=== PATIENT | female | born 1975 | race Caucasian/White ===

== ENCOUNTER 2020-10-12 07:25 | Emergency (ER) | payer MEDICAID ==
[2020-10-12] MEDS ORDERED: DOXYCYCLINE 100 MG TABLET PO STA (08:25)
[2020-10-12] MEDS ORDERED: cephALEXin 250 MG CAPSULE PO STA (08:25)
--- NOTE | 2020-10-12 08:59 | XRAY Report ---
PROCEDURE: Finger(s) LT INDICATIONS: injury/pain/swelling index finger TECHNIQUE: AP hand, 2 views of the second finger(s) acquired. COMPARISON: None FINDINGS: Bones: No fractures or dislocations is seen in second finger. There is cortical irregularity involvi ng radial aspect of third distal phalangeal base suggestive of age-indeterminate injury. Radiolucency is also seen involving ulnar aspect of fourth middle phalangeal base. Soft tissues: No suspicious soft tissue calcifications. Soft tissue swelling surrounding fourth PIP joint is seen. IMPRESSION: 1. No gross second finger fracture or dislocation. No suspicious bony lesion within second finger. 2. Incidentally noted of age-indeterminate injury involving radial aspect of third distal phalangeal base. Radiolucency involving ulnar aspect of fourth middle phalangeal base with surrounding fourth P IP soft tissue swelling. Clinical correlation is recommended for evaluation of possible inflammatory arthropathy. Reviewed by: Reyes Gamboa MD on 10/12/2020 8:58 AM PDT Approved by: Reyes Gamboa MD on 10/12/2020 8:58 AM PDT Station ID: [id number]
--- NOTE | 2020-10-12 09:09 | ED Physician Documentation ---
PD HPI UPPER EXT INJURY - Stated complaint Stated Complaint: L HAND PX - Chief complaint Chief Complaint: Ext Problem - History obtained from History obtained from: Patient - Additonal information Additional information: Patient comes emergency department chief complaint of I think I sprained my left index finger. Patient states that yesterday, when she was tying her shoe, she pulled extra hard on a shoelace and felt as though she had sprained her left index finger. She states it continued to become increasingly painful throughout the day, and began to swell. Patient states that when she woke up this morning, her finger was quite swollen and appeared somewhat red. Patient states the pain and swelling have not spread beyond the finger, however. She states that she has a history of something similar happening on the other hand, though it involve the entire hand. She states it turned red and swollen and was quite painful. She never sought medical attention and ultimately, she states the symptoms resolved on their own. Patient also notes that the fourth finger of the left hand has repeatedly swelled and has become deformed at the PIP joint. She is not sure why. The patient has no history of rheumatoid or lupus arthritis. She is not known to have gout. Nobody in the family with these problems. Patient denies fevers or chills. She states she does not feel ill in any way. She has a history of pulmonary hypertension and is a smoker. No other complaints at this time. Review of Systems Ten Systems: 10 systems reviewed and negative Constitutional: reports: Reviewed and negative Eyes: reports: Reviewed and negative Ears: reports: Reviewed and negative Nose: reports: Reviewed and negative Throat: reports: Reviewed and negative Cardiac: reports: Reviewed and negative Respiratory: reports: Reviewed and negative GI: reports: Reviewed and negative : reports: Reviewed and negative Skin: reports: Reviewed and negative Musculoskeletal: reports: Extremity pain, Joint pain, Extremity swelling, Joint swelling Neurologic: reports: Reviewed and negative Psychiatric: reports: Reviewed and negative Endocrine: reports: Reviewed and negative Immunocompromised: reports: Reviewed and negative PD PAST MEDICAL HISTORY - Past Medical History Past Medical History: Yes Cardiovascular: Congestive heart failure, Hypertension, Other Respiratory: Emphysema, Other Neuro: None Endocrine/Autoimmune: None GI: Hepatitis PLACEMENT MANAGER: None : None HEENT: None Psych: None Musculoskeletal: None Derm: None Other Past Medical History: pulmonary arterial hypertension - Past Surgical History Past Surgical History: Yes /PLACEMENT MANAGER: section - Present Medications Home Medications: Ambulatory Orders Medication Instructions Recorded Confirmed Albuterol Sulf [Ventolin Hfa 1 - 2 puffs INH Q4HR PRN 10/12/20 10/12/20 Inhaler] Ambrisentan 10 mg PO DAILY 10/12/20 10/12/20 Doxycycline Hyclate 100 mg PO BID #14 10/12/20 Furosemide [Lasix] 40 mg PO DAILY 10/12/20 10/12/20 Indomethacin [Indocin] 25 mg PO BIDWM #8 10/12/20 Lisinopril [Zestril] 30 mg PO DAILY 10/12/20 10/12/20 Spironolactone [Aldactone] 25 mg PO DAILY 10/12/20 10/12/20 cephALEXin [Keflex] 500 mg PO Q6H #28 10/12/20 - Allergies Allergies/Adverse Reactions: Allergies Allergy/AdvReac Type Severity Reaction Status Date / Time No Known Drug Allergies Allergy Verified 10/12/20 07:48 - Social History Does the pt smoke?: No Smoking Status: Current every day smoker Does the pt drink ETOH?: Yes Does the pt have substance abuse?: Yes Substance Use and Type: Marijuana, Meth - Immunizations Immunizations are current?: Yes PD ED PE NORMAL - Vitals Vital signs reviewed: Yes - General General: Alert and oriented X 3, No acute distress - HEENT HEENT: Atraumatic, PERRL, EOMI, Moist mucous membranes - Neck Neck: Supple, no meningeal sign - Cardiac Cardiac: Strong equal pulses - Respiratory Respiratory: No respiratory distress - Derm Derm: Warm and dry, Other (Erythema and swelling of left index finger. No induration or fluctuance. No skin compromise or wound noted.) - Extremities Extremities: No deformity, Other (Notable swelling without deformity of left index finger. Tenderness noted over MCP joint, but does not extend along flexor tendon tract. Global, mild tenderness of the remainder of index finger. Significant deformity without acute appearance at left fourth PIP joint.) - Neuro Neuro: Alert and oriented X 3, records and tape recordings engineer 2-12 intact, No motor deficit, No sensory deficit, Normal speech - Psych Psych: Normal mood, Normal affect Results - Vitals Vitals: Vital Signs - 24 hr 10/12/20 07:40 Temperature 36.3 C L Heart Rate 106 H Respiratory 20 Rate Blood Pressure 141/83 H O2 Saturation 95 Oxygen O2 Source Room air - Rads (name of study) L fingers XR Radiology: Final report received, EMP read indepedently, See rad report (No acute findings L index finger; Other findings suggestive of possible inflammatory arthropathy.) PD MEDICAL DECISION MAKING - ED course Complexity details: reviewed results, re-evaluated patient, considered differential, d/w patient ED course: The patient was sent for an x-ray of the fingers, though I was concerned for infection, given the redness of the finger. However, the patient did not have any skin breakage on the symptoms of progressive had remained localized to the finger. There was no evidence of a flexor tenosynovitis at this time. Given the patient's similar symptoms before, which had resolved with out antibiotic treatment, I also wondered if the patient may have gout and gouty arthritis. I did speak to her about this possibility. We have given the patient antibiotics here in the emergency department and I will place her on a course as an outpat ient. We have discussed the need for follow-up, with which the patient is established, and we have discussed the usual indications for return. Departure - Departure Disposition: 01 Home, Self Care Clinical Impression: Swollen finger Cellulitis Qualifiers: Site of cellulitis: extremity Site of cellulitis of extremity: finger Laterality: left Qualified Code(s): L03.012 - Cellulitis of left finger Gout Qualifiers: Gout site: hand Gout etiology: unspecified cause Chronicity: acute Laterality: left Qualified Code(s): M10.9 - Gout, unspecified Condition: Stable Instructions: Cellulitis Dc, ED Arthritis Gout Prescriptions: Doxycycline Hyclate 100 mg PO BID #14 Indomethacin [Indocin] 25 mg PO BIDWM #8 cephALEXin [Keflex] 500 mg PO Q6H #28 Comments: X-ray does not show any evidence of injury to the bone acutely. 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 The history of swelling and flareups of your right hand also, as well as the joint destruction in the left ring finger and now your current flareup of the index finger raise suspicion for gout. We will treat you for infection to be on the safe side, but given that you have had recurrent symptoms like this, it is possible that gout especially the cause. This can cause redness and swelling of fingers or toes and sometimes hands or feet. Please follow-up with your doctor to be rechecked if you are not doing better within the week. Please take your antibiotics as directed until gone.
[2020-10-12 09:28] VITALS: BP 117/90
== END 2020-10-12 09:38 | disposition home or self-care (01) ==
LOC: ED 07:25
DX: L03.012 Cellulitis of left finger (principal); M10.9 Gout, unspecified; F17.200 Nicotine dependence, unspecified, uncomplicated; M19.042 Primary osteoarthritis, left hand
CPT/HCPCS: 73140; 99283; 99284; A9270

== ENCOUNTER 2021-03-20 12:53 | Outpatient (CLI) | payer MEDICAID | END 2021-03-20 12:54 | disposition critical access hospital (66) | LOC: EMS 12:53 | DX: R10.9 Unspecified abdominal pain (principal) | CPT/HCPCS: A0425; A0429 ==

== ENCOUNTER 2021-03-20 13:15 | Emergency (ER) | payer MEDICAID ==
[2021-03-20] MEDS ORDERED: HYDROmorphone 1 MG/ML CARPUJECT IVP STA (13:17)
--- NOTE | 2021-03-20 13:19 | ED Physician Documentation ---
PD HPI ABD PAIN - Stated complaint Stated Complaint: ABD pain - History obtained from History obtained from: Patient - Additional information Additional information: 45-year-old woman with history of pulmonary hypertension but no history of abdominal surgeries developed fairly sudden onset epigastric and upper abdominal pain today associated with difficulty with having a bowel movement but she was able to move her bowels. No fevers chills or nausea. Took a Tums at home which was not helpful. 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 - Present Medications Home Medications: Ambulatory Orders Medication Instructions Recorded Confirmed Albuterol Sulf [Ventolin Hfa 1 - 2 puffs INH Q4HR PRN 10/12/20 03/20/21 Inhaler] Ambrisentan 10 mg PO DAILY 10/12/20 03/20/21 Furosemide [Lasix] 40 mg PO DAILY 10/12/20 03/20/21 Lisinopril [Zestril] 30 mg PO DAILY 10/12/20 03/20/21 Spironolactone [Aldactone] 25 mg PO DAILY 10/12/20 03/20/21 Oxycodone HCl/Acetaminophen 1 - 2 each PO Q6H PRN #14 tablet 03/20/21 [Percocet 5-325 mg Tablet] metroNIDAZOLE [Flagyl] 500 mg PO BID #14 tablet 03/20/21 - Allergies Allergies/Adverse Reactions: Allergies Allergy/AdvReac Type Severity Reaction Status Date / Time No Known Drug Allergies Allergy Verified 03/20/21 13:18 - Social History Does the pt smoke?: No Smoking Status: Current every day smoker Does the pt drink ETOH?: Yes Does the pt have substance abuse?: Yes Substance Use and Type: Marijuana, Meth - Immunizations Immunizations are current?: Yes PD ED PE NORMAL - Vitals Vital signs reviewed: Yes - General General: Alert and oriented X 3, Other (She is agitated, twitchy, c/w amphetamine use. Requires frequent redirection to keep the mask on.) - HEENT HEENT: PERRL, EOMI - Neck Neck: Supple, no meningeal sign, No bony TTP - Cardiac Cardiac: RRR, No murmur - Respiratory Respiratory: No respiratory distress, Clear bilaterally - Abdomen Abdomen: Normal bowel sounds, Soft, Other (Some tenderness on the left side although difficult to localize since she is writhing around during examination.) - Back Back: No CVA TTP, No spinal TTP - Derm Derm: Normal color, Warm and dry - Extremities Extremities: No edema, No calf tenderness / cord - Neuro Neuro: Alert and oriented X 3, Normal speech Results - Vitals Vitals: Vital Signs - 24 hr 03/20/21 03/20/21 03/20/21 13:18 13:34 14:48 Temperature 36.1 C L 36.2 C L Heart Rate 92 98 Respiratory 24 24 22 Rate Blood Pressure 123/98 H 123/98 H 104/89 H O2 Saturation 75 L 94 99 Oxygen O2 Source Room air - Labs Labs: Laboratory Tests 03/20/21 03/20/21 03/20/21 14:30 14:30 15:08 WBC 9.2 RBC 5.09 Hgb 15.1 Hct 45.0 MCV 88.4 MCH 29.7 MCHC 33.6 RDW 13.5 Plt Count 351 MPV 10.7 Neut # (Auto) 6.9 H Lymph # (Auto) 1.2 L Worth # (Auto) 0.9 Eos # (Auto) 0.2 Baso # (Auto) 0.1 Absolute Nucleated RBC 0.00 Nucleated RBC % 0.0 Sodium 140 Potassium 4.3 Chloride 107 Carbon Dioxide 22 Anion Gap 11.0 BUN 32 H Creatinine 1.1 H Estimated GFR (MDRD) 53 L Glucose 93 Calcium 8.6 Total Bilirubin 1.0 AST 28 ALT 20 Alkaline Phosphatase 114 Total Protein 7.5 Albumin 3.1 L Globulin 4.4 H Albumin/Globulin Ratio 0.7 L Lipase 24 Urine Color DARK YELLOW Urine Clarity HAZY Urine pH 6.0 Ur Specific White >=1.030 H Urine Protein 30 H Urine Glucose (UA) NEGATIVE Urine Ketones NEGATIVE Urine Occult Blood NEGATIVE Urine Nitrite NEGATIVE Urine Bilirubin NEGATIVE Urine Urobilinogen 2 H Ur Leukocyte Esterase NEGATIVE Urine RBC 0-5 Urine WBC 0-3 Ur Squamous Epith Cells MOD Squamous H Urine Bacteria Few Ur Microscopic Review INDICATED Urine Culture Comments NOT INDICATED Urine HCG, Qual NEGATIVE Urine Opiates Screen POSITIVE H Ur Oxycodone Screen NEGATIVE Urine Methadone Screen NEGATIVE Ur Propoxyphene Screen NEGATIVE Ur Barbiturates Screen NEGATIVE Ur Tricyclics Screen NEGATIVE Ur Phencyclidine Scrn NEGATIVE Ur Amphetamine Screen POSITIVE H U Methamphetamines Scrn POSITIVE H U Benzodiazepines Scrn NEGATIVE Urine Cocaine Screen NEGATIVE U Cannabinoids Screen POSITIVE H Procedures - General procedure General procedure: There were troubles with phlebotomy and I personally eusebia her blood using real- time ultrasound guidance from the right deep brachial vein. Patient notes she has remote history of IVDU. PD MEDICAL DECISION MAKING - ED course ED course: 45-year-old woman with methamphetamine abuse and pulmonary hypertension presents with severe abdominal pain located on the left side. Fairly benign exam but on initial evaluation she is in a lot of pain. On reexamination after divided d oses of pain medication she had mild left lower quadrant tenderness, no right upper quadrant tenderness. CT interpreted contemporaneously by me was consistent with colitis and gallstones, I think the colitis is likely the causative culprit now. She was notified about the gallstones. Referred for both primary care and colonoscopy and will do some Flagyl and her in the interim. Departure - Departure Disposition: 01 Home, Self Care Clinical Impression: Colitis Condition: Good Record reviewed to determine appropriate education?: Yes Instructions: ED Abdominal Pain Unkn Cause Follow-Up: Gonzalo Grady MD [Provider Admit Priv/Credential] - Mukund Wadsworth MD [Provider Admit Priv/Credential] - Prescriptions: metroNIDAZOLE [Flagyl] 500 mg PO BID #14 tablet Oxycodone HCl/Acetaminophen [Percocet 5-325 mg Tablet] 1 - 2 each PO Q6H PRN #14 tablet PRN Reason: pain Comments: Prescription sent electronically to [facility]. For your records, test was done today and negative. As discussed you do have gallstones but these seem asymptomatic, given the location and quality of your pain it seems more that the colitis noted on CT is likely the cause of your pain. For this I am putting you on a antibiotic, Flagyl. Do not drink alcohol while you are on it as it will make you quite sick. You also need [facility] primary care follow-up and follow-up for evaluation for colonoscopy. Both numbers are on this form, the surgeon for the colonoscopy and Dr. Grady for primary care. Return for new or worsening symptoms. I am prescribing a short course of narcotic pain medication for you. These are potentially dangerous and addictive medications that should be used carefully. These medications may constipate you. Take an [id number] stool softener (docusate) twice daily with plenty of water while taking these medications. If you go 24 hours without a bowel movement, take [id number] miralax, per package instructions. Do not drink or drive while taking these medications. If you received narcotic or sedating medications while in the emergency department, do not drive for 24 hours. Store this medication in a safe, secure place and out of reach of children. It is a violation of federal law to give or sell this medication to another person or to use in a manner other than prescribed. The ED will not refill narcotic prescriptions, including prescriptions lost or stolen. To dispose of unwanted medications: 1. [facility] at [address] in [facility] has a medication drop box. They accept prescription medications (in pill form) Sunday through Sunday 9:00 a.m. to 5:00 p.m. 2. The [facility] [employer] accepts prescription medications (in pill form only) for disposal year round. Call for more information. 3. Contact the [facility] for the next [facility] sponsored prescription drug collection event. , [phone], or [phone]; Note that many narcotic pain relievers also contain Tylenol/acetaminophen. Please ensure that your total dose of acetaminophen from all sources does not exceed 3 g (3000 mg) per day.
[2021-03-20] MEDS ORDERED: IOPAMIDOL-300 100 ML VIAL ONE (14:33)
[2021-03-20] MEDS ORDERED: MORPHINE 2 MG/ML CARPUJECT IVP STA (14:36)
[2021-03-20 14:38] LABS: BASOPHILS # (AUTO) 0.1 10^3/uL (0.0-0.1); BASOPHILS % (AUTO) 0.6 %; EOSINOPHILS # (AUTO) 0.2 10^3/uL (0.0-0.7); EOSINOPHILS % (AUTO) 1.6 %; HGB - HEMOGLOBIN 15.1 g/dL (12.0-16.0); LYMPHOCYTES # (AUTO) 1.2 10^3/uL (1.5-3.5); LYMPHOCYTES % (AUTO) 12.7 %; MEAN CORPUSCULAR HEMOGLOBIN 29.7 pg (27.0-31.0); MEAN CORPUSCULAR HGB CONC 33.6 g/dL (32.0-36.0); MEAN CORPUSCULAR VOLUME 88.4 fL (81.0-99.0); MEAN PLATELET VOLUME 10.7 fL (7.9-10.8); MONOCYTES # (AUTO) 0.9 10^3/uL (0.0-1.0); MONOCYTES % (AUTO) 9.6 %; NEUTROPHILS # (AUTO) 6.9 10^3/uL (1.5-6.6); NEUTROPHILS % (AUTO) 75.2 %; PLT - PLATELET COUNT 351 10^3/uL (130-450); RED BLOOD COUNT 5.09 10^6/uL (4.20-5.40); RED CELL DISTRIBUTION WIDTH 13.5 % (12.0-15.0); WHITE BLOOD COUNT 9.2 x10^3/uL (4.8-10.8)
[2021-03-20 15:15] LABS: MUDS CUTOFF CONCENTRATIONS CUTOFF CONC BELOW:
[2021-03-20 15:18] LABS: BILIRUBIN,URINE NEGATIVE (NEGATIVE); GLUCOSE, URINE (UA) NEGATIVE (NEGATIVE); KETONES,URINE (UA) NEGATIVE (NEGATIVE); LEUKOCYTE ESTERASE, URINE NEGATIVE (NEGATIVE); NITRITE,URINE NEGATIVE (NEGATIVE); OCCULT BLOOD,URINE NEGATIVE (NEGATIVE); PROTEIN,URINE 30 mg/dL (NEGATIVE); UROBILINOGEN,URINE 2 E.U./dL (NORMAL)
[2021-03-20 15:20] LABS: ALBUMIN 3.1 g/dL (3.2-5.5); ALBUMIN/GLOBULIN RATIO 0.7 (1.0-2.2); CALCIUM 8.6 mg/dL (8.5-10.3); CREATININE 1.1 mg/dL (0.4-1.0); POTASSIUM 4.3 mmol/L (3.5-5.0); TOTAL PROTEIN 7.5 g/dL (6.7-8.2)
[2021-03-20 15:21] LABS: CLARITY,URINE HAZY (CLEAR); HCG UR QUAL NEGATIVE
[2021-03-20 15:28] LABS: BACTERIA,URINE Few /HPF (None Seen); RBC,URINE 0-5 /HPF (0-5); SQUAMOUS EPITHELIAL CELL,UR MOD Squamous (<= Few); WBC,URINE 0-3 /HPF (0-5)
[2021-03-20 15:42] LABS: AMPHETAMINE SCREEN,URINE POSITIVE (NEGATIVE); BARBITURATE SCREEN,UR NEGATIVE (NEGATIVE); BENZODIAZEPINES SCREEN, URINE NEGATIVE (NEGATIVE); COCAINE SCREEN URINE NEGATIVE (NEGATIVE); METHADONE SCREEN, URINE NEGATIVE (NEGATIVE); METHAMPHETAMINES SCREEN, URINE POSITIVE (NEGATIVE); OPIATE SCREEN, URINE POSITIVE (NEGATIVE); OXYCODONE SCREEN, URINE NEGATIVE (NEGATIVE); PROPOXYPHENE SCREEN, URINE NEGATIVE (NEGATIVE); THC CANNABINOID SCREEN, URINE POSITIVE (NEGATIVE); TRICYCLIC ANTIDEPRESSANT,URINE NEGATIVE (NEGATIVE)
--- NOTE | 2021-03-20 16:00 | CT Report ---
PROCEDURE: Abdomen/Pelvis W INDICATIONS: IV only, abd pain CONTRAST: IV CONTRAST: Isovue 300 ml: 100 PO CONTRAST: *NO PO CONTRAST TECHNIQUE: After the administration of IV contrast, 5 mm thick sections acquired from the diaphragms to the symp hysis. 5 mm thick coronal and sagittal reformats were acquired. For radiation dose reduction, the f ollowing was used: automated exposure control, adjustment of mA and/or kV according to patient size. COMPARISON: None. FINDINGS: Image quality: Excellent. ABDOMEN: Lung bases: Lung bases are clear. Heart size is normal. Solid organs: Liver and spleen are normal in size and enhancement. Diffuse fatty liver infiltration can be seen. Gallbladder there is trace gallstones within its lumen. The gallbladder wall is hyper enhancing, as on series 3 image 31 and on series 6 image 12. Biliary system is non dilated. Pancrea s enhances normally. Generalized thickening can be seen of the degenerative glands, yet without focal adrenal nodules. Kidneys demonstrate normal size and enhancement, without hydronephrosis. Peritoneum and bowel: There is generalized wall thickening seen involving the distal colon, beginning at the level of the splenic flexure and continuing through the rectum. Minimal surrounding inflammat ory changes are seen. No free air or significant free fluid can be seen. No abscess collection is see n. There is a moderate amount of stool seen within the more proximal colon. The small bowel loops demons trate normal wall thickness and caliber. A normal appendix can be seen. No focal right lower quadra nt inflammatory changes are seen. Nodes and vessels: No retroperitoneal or mesenteric adenopathy by size criteria. Aorta and inferior vena cava are normal in size. Miscellaneous: No ventral hernias. PELVIS: Genitourinary: Bladder wall thickness is normal. The uterus demonstrates an unremarkable appearance for age. No adnexal masses are seen. There is a right ovarian cyst seen that measures up to 1.9 cm, which is considered to be within physiologic limits. Miscellaneous: No inguinal hernias or adenopathy. Bones: No suspicious bony lesions. No vertebral body compression fractures. Mild dextroconvex scol iotic curvature is seen. IMPRESSION: Moderate wall thickening can be seen involving the distal colon. Please correlate with p otential infectious and inflammatory causes of colitis. Ischemia is considered to be much less likely . Gallstones are seen within the gallbladder lumen and the gallbladder wall appears hyperenhancing. Ple ase consider cholecystitis. If clinically appropriate, a dedicated right upper quadrant ultrasound co uld be considered for further evaluation. Normal appendix. Incidental note is made of: Fatty liver infiltration Physiologic appearing right ovarian cyst Dextroconvex scoliotic curvature Reviewed by: Ezequiel Rowe MD on 03/20/2021 2:59 PM AKDT Approved by: Ezequiel Rowe MD on 03/20/2021 2:59 PM AKDT Station ID: [id number]
[2021-03-20] MEDS ORDERED: IOPAMIDOL-300 100 ML VIAL IVP ONE (16:08)
[2021-03-20 17:03] VITALS: BP 98/70
== END 2021-03-20 16:20 | disposition home or self-care (01) ==
LOC: EDUNIT# → ED 13:15
DX: K52.9 Noninfective gastroenteritis and colitis, unspecified (principal); K80.20 Calculus of gallbladder without cholecystitis without obstruction; F15.10 Other stimulant abuse, uncomplicated; I27.20 Pulmonary hypertension, unspecified; F17.200 Nicotine dependence, unspecified, uncomplicated
CPT/HCPCS: 36415; 74177; 80053; 80306; 81001; 81025; 83690; 85025; 96374; 96375; 99284; J1170; Q9967; 81003; 87086

== ENCOUNTER 2021-07-05 06:01 | Emergency (ER) | payer MEDICAID ==
[2021-07-05] MEDS ORDERED: NALOXONE 0.4 MG/ML VIAL ONE ×2 (06:24→06:37)
[2021-07-05 06:40] VITALS: BP 0/0
--- NOTE | 2021-07-05 06:45 | ED Physician Documentation ---
History of Present Illness - Stated complaint Stated Complaint: SOA - Chief complaint Chief Complaint: Resp - History obtained from History obtained from: Friend - Additonal information Additional information: Patient is brought to the emergency department by a friend for chief complaint of "short of breath". Initially, not much information is available, as the patient is completely unresponsive, cold, and cyanotic. Friend later arrives and states that the patient has had some sort of upper respiratory infection, as has her entire family, and has been having trouble breathing for the last couple of days. The patient also uses multiple drugs, including heroin and "clear". The patient has been with her boyfriend per friend, and friend states that the boyfriend dropped the patient off with her, stating that the patient "was not breathing". Friend states that the patient was minimally conscious on the way here by private vehicle and that the patient stated during a brief moment of consciousness that she was dying. Upon arrival, the patient was found on the ground outside the car, cold, cyanotic, and with minimal respiratory effort, and was carried into the emergency department by staff. No other information is available. Review of Systems Unable to obtain: Unresponsive PD PAST MEDICAL HISTORY - Past Medical History Cardiovascular: Congestive heart failure, Hypertension, Other Respiratory: Emphysema, Other Neuro: None Endocrine/Autoimmune: None GI: Hepatitis ETL ANALYST DEVELOPER: None : None HEENT: None Psych: None Musculoskeletal: None Derm: None - Past Surgical History Past Surgical History: Yes /ETL ANALYST DEVELOPER: section - Present Medications Home Medications: Ambulatory Orders Medication Instructions Recorded Confirmed Albuterol Sulf [Ventolin Hfa 1 - 2 puffs INH Q4HR PRN 10/12/20 03/20/21 Inhaler] Ambrisentan 10 mg PO DAILY 10/12/20 03/20/21 Furosemide [Lasix] 40 mg PO DAILY 10/12/20 03/20/21 Lisinopril [Zestril] 30 mg PO DAILY 10/12/20 03/20/21 Spironolactone [Aldactone] 25 mg PO DAILY 10/12/20 03/20/21 Oxycodone HCl/Acetaminophen 1 - 2 each PO Q6H PRN #14 tablet 03/20/21 [Percocet 5-325 mg Tablet] metroNIDAZOLE [Flagyl] 500 mg PO BID #14 tablet 03/20/21 - Allergies Allergies/Adverse Reactions: Allergies Allergy/AdvReac Type Severity Reaction Status Date / Time No Known Drug Allergies Allergy Verified 07/05/21 06:40 - Social History Does the pt smoke?: No Smoking Status: Current every day smoker Does the pt drink ETOH?: Yes Does the pt have substance abuse?: Yes - Immunizations Immunizations are current?: Yes PD ED PE NORMAL - Vitals Vital signs reviewed: Yes - General General: Other (Cold, cyanotic, unresponsive patient with minimal respiratory effort) - HEENT HEENT: Atraumatic, Moist mucous membranes, Other (Pupils 5 mm and minimally responsive. Symmetrical.) - Cardiac Cardiac: Other (Initially, heart tones faint but regular rate and rhythm. Pulses palpable.) - Respiratory Respiratory: Other (Cyanotic, minimal respiratory effort. Breath sounds are diminished, but clear, with mild upper respiratory sounds able to be auscultated.) - Abdomen Abdomen: Soft, Other (Mild distention) - Derm Derm: Other (All 4 extremities extremely cold. Cyanosis of distal extremities, face, and lips) - Extremities Extremities: No deformity, No edema - Neuro Neuro: Other (Unresponsive, even to noxious stimuli) Results - Vitals Vitals: Vital Signs - 24 hr 07/05/21 06:05 Heart Rate 0 L Respiratory 0 L Rate Blood Pressure 0/0 L O2 Saturation 0 L Oxygen O2 Source Room air PD MEDICAL DECISION MAKING - ED course Complexity details: considered differential, other (Discussed with friend) ED course: The patient was brought into the emergency department and we immediately began bagging to assist respirations. The patient initially did have heart tones that could be auscultated with pulses and so initially, CPR was not undertaken, but just assistance of respirations. The patient was given 0.4 mg of Narcan intranasally, and fingerstick glucose was found to be 107. With oxygenation, t he patient did improve slightly, and became somewhat agitated, but without any coherence or visual tracking. Her pupils actually became somewhat smaller, not larger. She did make better respiratory effort, and it was not clear whether this was the Narcan or oxygenation. I did place an external jugular line on each side, as patient had exceedingly difficult peripheral access and we needed IV access as soon as possible. 2 more doses of Narcan were pushed through the IV with no further improvement. Because of the brief improvement in the patient's respiratory effort, she was switched to a nonrebreather mask with 100% oxygen while we were attempting to get line placement. The initial plan was to intubate the patient once we had a line. However, the patient began to quickly jason down and at the same time respiratory effort swiftly became agonal and then nonexistent. We did start CPR immediately and 1 mg of epinephrine was administered. Following this, the patient did develop some electrical activity without pulse, CPR was continued. Patient did go on to receive 2 more doses of epinephrine, as well and 300 mg of amiodarone. She had a very brief return of pulses for a couple of minutes but swiftly became bradycardic again and thereafter, was unresponsive to any further efforts, including bagging, CPR, further doses of epinephrine, another dose of Narcan, and atropine, as well as the continuing effects of amiodarone. We had initially had quite a bit of difficulty getting a pulse ox on the patient, due to her extremely cold extremities, but ultimately, later on in the code, were able to get a good waveform and found that the CPR and oxygenation were of good quality, with a pulse ox of the upper 90s during active CPR. Blood pressure during CPR was also found to be above 100 systolic. I went and discussed the dire nature of the situation with the patient's friend, as it seemed the patient likely had been hypoxic for quite some time before she got to us, and was not responding to further efforts. The friend expressed understanding and 25 minutes after the patient's arrival in the emergency department, and after nearly 20 minutes of futile resuscitative efforts, the patient was pronounced at 0635. Patient's friend is notifying patient's family at this time. - Critical Care Time(min): 45 Comments: Critical care time was necessary, secondary to acute life-threatening condition with high probability of further decline and , secondary to respiratory failure and cardiac arrest. Time Includes: Direct patient care, Reassess patient, Document care, Coordinate care, See progress note Data interpretation: Pulse ox, Cardiac output Procedures included in critical care time: Peripheral IV, Blood draw, See progress note Departure - Departure Disposition: 20 Clinical Impression: Respiratory arrest, Cardiac arrest, Polysubstance abuse Upper respiratory infection Qualifiers: URI type: unspecified viral URI Qualified Code(s): J06.9 - Acute upper respiratory infection, unspecified Condition: Critical
== END 2021-07-05 06:35 | disposition expired ==
LOC: ED 06:01
DX: I46.9 Cardiac arrest, cause unspecified (principal); F19.10 Other psychoactive substance abuse, uncomplicated; I11.0 Hypertensive heart disease with heart failure; I50.9 Heart failure, unspecified; F17.200 Nicotine dependence, unspecified, uncomplicated; J43.9 Emphysema, unspecified
CPT/HCPCS: 36415; 92950